=== PATIENT | female | born 1970 | race Caucasian/White ===

== ENCOUNTER 2016-07-09 13:37 | Inpatient (IN) | payer BC ==
[~2016-07-09] VITALS: Ht 167.6 cm; Wt 69.8 kg
[~2016-07-09 13:37] MED LIST: ALKA-SELTZER P1 EA10 PO; ALKA-SELTZER P1 EAC8 PO; ANAPROX DS550 M1 PO; CATAPRES0.1 MG PO; CLEOCIN300 MG PO; CRESTOR20 MG PO; CYCLOBENZAPRINE5 MG PO; LIPITOR20 MG PO; LUNESTA3 MG; LUNESTA3 MG PO; Lunesta PO; NEXIUM20 MG PO; NITROFURANTOIN100 M3; PRAVASTATIN SOD20 MG PO; TYLENOL WITH C1 EACH PO; VICODIN,LORT1 TABLET PO; XANAX0.25 MG PO; Xanax PO
[2016-07-09 15:06] LABS: EOSINOPHIL (%) 0.3 % (0-5); HEMATOCRIT 37.7 % (36.0-46.0); IMMATURE GRANULOCYTE (%) 0.3 % (0.0-0.7); INSTRUMENT ABS NEUTROPHIL CT 9.9 K/uL; MCH 27.3 PG (29.0-34.0); MCHC 31.3 G/DL (30.0-36.0); MCV 87.3 FL (83-99); MONOCYTE (%) 8.7 % (3-12); NEUTROPHIL (%) 82.5 % (45-76); NEUTROPHIL COUNT 9.9 K/uL (1.8-6.4); PLATELET COUNT 159 K/uL (156-360); RBC DIS.WIDTH-CV 15.6 % (11.8-14.6); RBC DIS.WIDTH-SD 50.1 % (39-53); RED BLOOD COUNT 4.32 M/uL (3.80-5.20)
[2016-07-09 15:14] LABS: CHLORIDE 100 mEq/L (99-109); POTASSIUM 3.3 mEq/L (3.7-5.4); SODIUM 140 mEq/L (136-147)
[2016-07-09 15:16] LABS: GLUCOSE 85 mg/dL (70-99)
[2016-07-09 15:17] LABS: ANION GAP 12 MEQ/L (2-14)
[2016-07-09 15:18] LABS: TOTAL BILIRUBIN 1.2 mg/dL (0.0-1.0)
[2016-07-09 15:19] LABS: ALKALINE PHOSPHATASE 50 IU/L (3-129)
[2016-07-09 15:20] LABS: GFR ESTIMATE (CALCULATED) > 59 mL/min/
[2016-07-09 15:21] LABS: UREA NITROGEN (BUN) 10 mg/dL (9-23)
[2016-07-09 15:23] LABS: LIPASE 10 U/L (1.0-51.0)
[2016-07-09 16:09] LABS: ADD MIUA? NO; BILIRUBIN NEGATIVE; BLOOD NEGATIVE; COLOR YELLOW ((YELLOW)); GLUCOSE (STRIP) NEGATIVE; KETONES 20; LEUKOCYTES NEGATIVE; NITRITE NEGATIVE; PROTEIN (STRIP) NEGATIVE; SPECIFIC GRAVITY 1.011 (1.000-1.030); UCUL ADDED? NO; UROBILINOGEN 0.2 MG/DL (0.2-1.0)
[2016-07-09] MEDS ORDERED: FLEXERIL10 MG PO (17:36)
[2016-07-09] MEDS ORDERED: OXYCODONE HCL5 MG PO (17:37)
[2016-07-09] MEDS ORDERED: ZOFRAN ODT4 MG PO (17:37)
[2016-07-09] MEDS ORDERED: ALPRAZOLAM0.25 M2 PO (17:37)
[2016-07-09] MEDS ORDERED: CRESTOR20 MG PO (17:37)
[2016-07-09] MEDS ORDERED: LUNESTA3 MG PO (17:37)
[2016-07-09] MEDS ORDERED: COLACE100 MG PO (17:37)
[2016-07-09] MEDS ORDERED: IBUPROFEN800 MG PO (17:37)
[2016-07-09 20:42] VITALS: BP 125/73
[2016-07-09 23:10] VITALS: BP 122/77; BP 137/62
[2016-07-10 04:18] VITALS: BP 124/77
[2016-07-10 08:14] VITALS: BP 110/62
[2016-07-10 11:29] LABS: EOSINOPHIL (%) 2.8 % (0-5); EOSINOPHIL COUNT 0.2 K/uL (0-0.3); HEMATOCRIT 35.4 % (36.0-46.0); IMMATURE GRANULOCYTE (%) 0.2 % (0.0-0.7); INSTRUMENT ABS NEUTROPHIL CT 3.4 K/uL; LYMPHOCYTE COUNT 1.5 K/uL (1.0-2.8); MCH 28.2 PG (29.0-34.0); MCHC 31.6 G/DL (30.0-36.0); MCV 89.2 FL (83-99); MEAN PLAT.VOLUME 12.5 uM^3 (9.5-12.4); MONOCYTE (%) 11.9 % (3-12); MONOCYTE COUNT 0.7 K/uL (0-0.8); NEUTROPHIL (%) 58.3 % (45-76); NEUTROPHIL COUNT 3.4 K/uL (1.8-6.4); PLATELET COUNT 158 K/uL (156-360); RBC DIS.WIDTH-CV 15.6 % (11.8-14.6); RBC DIS.WIDTH-SD 51.7 % (39-53); RED BLOOD COUNT 3.97 M/uL (3.80-5.20); WHITE BLOOD COUNT 5.8 K/uL (4.1-10.2)
[2016-07-10 11:46] LABS: ANION GAP 6 MEQ/L (2-14); CHLORIDE 106 MEQ/L (99-109); MAGNESIUM 1.6 mg/dl (1.3-2.7); POTASSIUM 3.7 MEQ/L (3.7-5.4); SAMPLE HEMOLYSIS CHECK 0; SAMPLE ICTERIC CHECK 0; SAMPLE LIPEMIA CHECK 0; SODIUM 142 MEQ/L (136-147); TOTAL BILIRUBIN 1.3 MG/DL (0.0-1.0)
[2016-07-10 11:52] LABS: ALKALINE PHOSPHATASE 42 IU/L (3-129); GFR ESTIMATE (CALCULATED) > 59 mL/min/; GLUCOSE 95 mg/dL (70-99); UREA NITROGEN (BUN) 6 mg/dL (9-23)
[2016-07-10 15:12] VITALS: BP 136/86
== END 2016-07-10 16:45 | disposition short-term general hospital (02) | DRG 395 ==
LOC: EME → EDBD 13:37 → EDOF 17:20 → 2EASTP 17:20
PROVIDERS: Emergency Medicine; Surgery
DX: K91.3 Postprocedural intestinal obstruction (principal); Y83.6 Removal of other organ (partial) (total) as the cause of abnormal reaction of the patient, or of later complication, without mention of misadventure at the time of the procedure; Z90.710 Acquired absence of both cervix and uterus
CPT/HCPCS: 74176; 80048; 80053; 81003; 83690; 83735; 84100; 85025; 85027; 99281; 99285; C9113; J1170; J1200; J2175; J2270; J2405; J2765; J3010; J7030